=== PATIENT | male | born 1980 | race Caucasian/White ===

== ENCOUNTER 2017-07-30 12:18 | Emergency (ER) | payer OTHER ==
[~2017-07-30] VITALS: Ht 190.5 cm; Wt 113.4 kg
[~2017-07-30 12:18] MED LIST: ANAPROX DS550 MG PO; KEFLEX500 MG PO; LOPRESSOR25 MG PO; LOPRESSOR50 MG PO; MEDROL DOSEPAK4 MG PO; MOTRIN800 MG PO; PREVACID SOLUTA30 MG PO; ROBAXIN750 MG PO; TORADOL10 MG PO; TRAMADOL HCL50 MG PO; ZANTAC150 MG PO
[2017-07-30] MEDS ORDERED: NAPROSYN500 MG PO (14:09)
[2017-07-30] MEDS ORDERED: CYCLOBENZAPRINE10 MG PO (14:09)
== END 2017-07-30 14:23 | disposition home or self-care (01) ==
LOC: ED 12:18
DX: G89.29 Other chronic pain (principal); M54.5 Low back pain

== ENCOUNTER → 2019-05-22 | Outpatient (CLI) | payer OTHER ==
[~2019-05-22] MED LIST changes: +CYCLOBENZAPRINE10 MG PO; +NAPROSYN500 MG PO
== END | disposition home or self-care (01) ==
LOC: CT 05-21 09:00
DX: R22.0 Localized swelling, mass and lump, head (principal)

== ENCOUNTER 2022-11-01 18:21 | Emergency (ER) | payer OTHER ==
[~2022-11-01] VITALS: Ht 190.5 cm; Wt 108.9 kg
[2022-11-01] MEDS ORDERED: VIBRAMYCIN100 MG PO (22:24)
[2022-11-01] MEDS ORDERED: MUCINEX D ER 61 EACH PO (22:24)
== END 2022-11-01 22:50 | disposition home or self-care (01) ==
LOC: ED 18:21
DX: J40 Bronchitis, not specified as acute or chronic (principal); J06.9 Acute upper respiratory infection, unspecified; Z98.890 Other specified postprocedural states; F10.90 Alcohol use, unspecified, uncomplicated

== ENCOUNTER 2024-10-16 08:07 | Emergency (ER) | payer OTHER ==
[~2024-10-16] VITALS: Ht 190.5 cm; Wt 115.7 kg
[~2024-10-16 08:07] MED LIST changes: +MUCINEX D ER 61 EACH PO; +VIBRAMYCIN100 MG PO
[2024-10-16] MEDS ORDERED: Dexamethasone Sodium Phospha 20 MG/5 ML VIAL IM ONE (08:25)
[2024-10-16] MEDS ORDERED: Ketorolac Tromethamine 30 MG/ML VIAL IM ONE (08:25)
[2024-10-16] MEDS ORDERED: Acetaminophen/Oxycodone 5 MG/325 MG TABLET PO ONE (08:25)
[2024-10-16] MEDS ORDERED: PREDNISONE20 M1 PO (08:28)
[2024-10-16] MEDS ORDERED: CYCLOBENZAPRINE10 MG PO (08:28)
[2024-10-16] MEDS ORDERED: MELOXICAM15 MG PO (08:28)
== END 2024-10-16 09:08 | disposition home or self-care (01) ==
LOC: ED 08:07
DX: M54.42 Lumbago with sciatica, left side (principal); M79.605 Pain in left leg; Z87.442 Personal history of urinary calculi; Z98.890 Other specified postprocedural states

== ENCOUNTER 2024-10-29 22:35 | Emergency (ER) | payer OTHER ==
[~2024-10-29] VITALS: Ht 190.5 cm; Wt 117.9 kg
[~2024-10-29 22:35] MED LIST changes: +MELOXICAM15 MG PO; +PREDNISONE20 M1 PO
[2024-10-29 23:04] LABS: BASO % 0.5 % (0.0-1.0); EOS # 0.1 10*3/uL (0.0-0.4); EOS % 0.8 % (1.0-4.0); HEMATOCRIT 42.7 % (42.0-52.0); MEAN CELL VOLUME 86.1 fl (80.0-94.0); MEAN CORPUSCULAR HGB 29.8 pg (27.0-31.0); MEAN CORPUSCULAR HGB CONC 34.7 g/dl (33.0-37.0); MEAN PLATELET VOLUME 9.5 fl (9.6-12.3); MONO # 0.4 10*3/uL (0.1-1.0); MONO % 6.3 % (3.0-9.0); NEUT # 3.6 10*3/uL (2.3-7.9); NEUT % 58.4 % (47.0-73.0); PLATELET COUNT AUTOMATED 163 10*3/uL (130-400); RED BLOOD COUNT 4.96 10*6/uL (4.50-5.90); RED CELL DISTRI WIDTH 11.8 % (0-14.5); WHITE BLOOD COUNT 6.2 10*3/uL (4.8-10.8)
[2024-10-29 23:26] LABS: ALKALINE PHOSPHATASE 63 U/L (46-116); BUN 14 mg/dl (9-23); CHLORIDE 103 mmol/L (98-107); POTASSIUM 3.6 mmol/L (3.4-5.1); SGPT/ALT 28 U/L (5-49); TOTAL PROTEIN 6.7 gm/dL (6.0-8.0)
== END 2024-10-30 01:08 | disposition home or self-care (01) ==
LOC: ED 22:35
PROVIDERS: Internal Medicine
DX: R07.89 Other chest pain (principal); I42.1 Obstructive hypertrophic cardiomyopathy; R00.2 Palpitations; Z87.442 Personal history of urinary calculi; Z98.890 Other specified postprocedural states

== ENCOUNTER → 2024-10-30 | Outpatient (CLI) | payer OTHER ==
[2024-10-30 09:26] LABS: BASO % 0.5 % (0.0-1.0); EOS # 0.1 10*3/uL (0.0-0.4); EOS % 1.1 % (1.0-4.0); HEMATOCRIT 44.5 % (42.0-52.0); MEAN CELL VOLUME 86.7 fl (80.0-94.0); MEAN CORPUSCULAR HGB CONC 34.6 g/dl (33.0-37.0); MEAN PLATELET VOLUME 9.3 fl (9.6-12.3); MONO # 0.3 10*3/uL (0.1-1.0); NEUT # 3.4 10*3/uL (2.3-7.9); NEUT % 62.2 % (47.0-73.0); PLATELET COUNT AUTOMATED 174 10*3/uL (130-400); RED BLOOD COUNT 5.13 10*6/uL (4.50-5.90); RED CELL DISTRI WIDTH 11.8 % (0-14.5); RETICULOCYTE % 1.05 % (0.50-2.50); WHITE BLOOD COUNT 5.5 10*3/uL (4.8-10.8)
[2024-10-30 09:27] LABS: BILIRUBIN Negative (Negative); BLOOD Negative (Negative); CLARITY Clear (Clear); COLOR Yellow (Yellow); GLUCOSE Negative (Negative); KETONE Negative (Negative); LEUKO ESTERASE Negative (Negative); NITRITE Negative (Negative); PH 5.5 (4.5-8.0); UROBILINOGEN 0.2 E.U./dl (0.0-1.0)
[2024-10-30 09:54] LABS: ALKALINE PHOSPHATASE 57 U/L (46-116); BUN 12 mg/dl (9-23); CHLORIDE 105 mmol/L (98-107); CHOLESTEROL 224 mg/dL (<200); CPK 67 U/L (34-171); GAMMA GLUTAMYL TRANSPEPTIDASE 23 U/L (0-73); LDL CHOLESTEROL 131 mg/dL (9-159); POTASSIUM 4.3 mmol/L (3.4-5.1); SGPT/ALT 28 U/L (5-49); T3 UPTAKE 32.9 % (22.4-36.7); THYROXINE (T4) TOTAL 6.3 ug/dl (4.5-10.9); TOTAL PROTEIN 6.9 gm/dL (6.0-8.0); TRIGLYCERIDES 238 mg/dl (<150); URIC ACID 4.7 mg/dL (3.7-9.2)
[2024-10-30 10:06] LABS: MUCOUS 1+; RBC 0-2 rbc/hpf (0-2); WBC 0-2 wbc/hpf (0-5)
[2024-11-02 12:06] LABS: ANTI-DSDNA ANTIBODIES <1 IU/mL (0-9)
== END | disposition home or self-care (01) ==
LOC: LAB 08:56
PROVIDERS: ATTEND Family Medicine
DX: E55.9 Vitamin D deficiency, unspecified (principal); R79.89 Other specified abnormal findings of blood chemistry; R53.83 Other fatigue

== ENCOUNTER → 2025-01-08 | Outpatient (CLI) | payer OTHER | END | disposition home or self-care (01) | LOC: CARD 12-09 09:30 | PROVIDERS: ATTEND Family Medicine | DX: R00.2 Palpitations (principal); I51.7 Cardiomegaly ==